=== PATIENT | male | born 1940 | race Asian ===

== ENCOUNTER 2017-08-02 05:21 | Emergency (ER) | payer MEDICARE, OTHER ==
[2017-08-02] MEDS ORDERED: CA CHLORIDE 10% 10 ML SYRINGE ×3 (05:48→07:00)
[2017-08-02] MEDS ORDERED: NORepinephrine 8MG/250 ML (PMX 250 ML (05:58)
[2017-08-02] MEDS ORDERED: SOD CHLORIDE 0.9% 1,000 ML IV (06:01)
[2017-08-02] MEDS ORDERED: ASPIRIN 300 MG SUPP PR (06:01)
[2017-08-02] MEDS ORDERED: LIDOCAINE 100 MG SYRINGE (07:00)
[2017-08-02] MEDS ORDERED: AMIODARONE 150 MG INJ (07:00)
[2017-08-02] MEDS ORDERED: NA BICARBONATE 8.4% 50 ML SYG (07:00)
[2017-08-02] MEDS ORDERED: MAGNESIUM SULFATE 1 GM/100 ML D5W IVPB (07:00)
[2017-08-02] MEDS ORDERED: EPINEPHrine 0.1 MG/ML SYG (07:00)
[2017-08-02] MEDS ORDERED: DEXTROSE 50% 50 ML SYRINGE (07:00)
== END 2017-08-02 12:30 | disposition expired ==
LOC: E/R 05:21
DX: I46.9 Cardiac arrest, cause unspecified (principal); I47.2 Ventricular tachycardia
CPT/HCPCS: 31500; 82962; 92950; 93005; 94002; 99285-25